=== PATIENT | female | born 1950 | race Two or more races ===

== ENCOUNTER 2018-03-19 10:06 | Inpatient (IN) | payer MEDICARE, OTHER ==
[2018-03-19] VITALS (10 sets, daily range): BP systolic 98–116; BP diastolic 58–73
[~2018-03-19] VITALS: Ht 162.6 cm; Wt 71.2 kg
--- NOTE | 2018-03-19 10:30 | NUR ---
MS RN ADMITTING NOTES ADMITTED PT FROM HOME-ACCOMPANIED BY HER FAMILY AT BEDSIDE.PT ALERT AND ORIENTED X4.VERBALLY RESPONSIVE IN HUNGARIAN AND RUSSIAN.DENIES ANY PAIN OR DISTRESS.NO SOB ON ROOM AIR.PT IS ON NPO FOR ANTERIOR L5-S1 DISCECTOMY AND INVERTEBRAL FUSION WITH POLYETHER,ETHER KETONE/TITANIUM SPACER,ALLOGRAFT BONE GRAFT AND SYNTHETIC BONE GRAFT MORNING SHOW PRODUCER SX.ALL CONSENTS AND CHECKLIST DONE.ALL BELONGING WILL BE BROUGHT BY FAMILY HOME.IV H/L INSERTED TO RT WRIST GAUGE 18.PT TOLERATED WELL.MRSA SCREENING OF LT NARES DONE AND SENT TO LAB.CALL LIGHT PLACED WITHIN REACH.
[2018-03-19] MEDS ORDERED: ANESTHESIA TRAY IN PYXIS 1 EA TRAY MC ONE (10:35)
[2018-03-19] MEDS ORDERED: HEPARIN SODIUM, PORCINE 5000 UNITS/1 ML VIAL ONE (10:42)
[2018-03-19] MEDS ORDERED: PROPOFOL 100 ML ONE (11:21)
[2018-03-19] MEDS ORDERED: KETAMINE HCL (500MG/10ML) 50 MG/ML VIAL ONE (11:21)
[2018-03-19] MEDS ORDERED: ROCURONIUM BROMIDE 50 MG/5 ML ONE ×2 (11:22→13:06)
[2018-03-19] MEDS ORDERED: DESFLURANE 240 ML BOTTLE IH ONE (11:22)
[2018-03-19] MEDS ORDERED: HYDROMORPHONE INJ 2 MG/ML DISP.SYRIN ONE (11:22)
[2018-03-19] MEDS ORDERED: MIDAZOLAM HCL 2 MG/2ML VIAL ONE (11:22)
--- NOTE | 2018-03-19 11:50 | NUR ---
PT WAS BROUGHT TO [facility] FOR SX WITH STABLE V/S.ALL CONSENTS AND CHECKLIST SIGNED AND DONE.DENIES ANY PAIN OR DISTRESS ON ROOM AIR.
[2018-03-19] MEDS ORDERED: GENTAMICIN 80 MG/2 ML VIAL ONE (12:15)
[2018-03-19] MEDS ORDERED: HEMOSTATIC MATRIX 10 ML 1 EACH PAD MC ONE (13:33)
[2018-03-19] MEDS ORDERED: ALBUTEROL FS 2.5 MG/3 ML VIAL.NEB ONE (15:52)
--- NOTE | 2018-03-19 16:30 | NUR ---
PT CAME BACK FROM [facility] S/P ANTERIOR SPINAL FUSION THRU ABDOMEN WITH STABLE V/S.PT REMAINS ALERT AND VERBALLY RESPONSIVE.WITH CARTER CATHETER DRAINING CLEAR YELLOW URINE.FAMILY AT BEDSIDE.CALLED DR MCKEON TO CLARIFY ABOUT PT'S VERBALIZING OF ANOTHER SX TOMORROW.NO PAIN MEDS NOR IVF ORDERED.PAGED DR MCKEON AWAITING TO RETURN CALL.
--- NOTE | 2018-03-19 17:00 | NUR ---
CALLED DR MCKEON TO CLARIFY POST OP ORDERS AND LEFT MESSAGE IN HIS VOICEMAIL.
[2018-03-19] MEDS ORDERED: ALPR0.5T8 PO (17:01)
[2018-03-19] MEDS ORDERED: EZET10TA14 PO (17:01)
[2018-03-19] MEDS ORDERED: HYDR-552 PO (17:01)
[2018-03-19] MEDS ORDERED: CARV3.12 PO (17:01)
--- NOTE | 2018-03-19 17:30 | NUR ---
CALLED VENKAT OLIVEIRA D.O. WHO HAS THE SAME PHONE NUMBER THAT OF DR MCKEON AND LEFT MESSAGE IN HIS VOICEMAIL.
--- NOTE | 2018-03-19 18:00 | NUR ---
NOTIFIED THE AUDIO PRODUCTION INSTRUCTOR,DANY AND ENERGY ADVISOR CLIENT CARE SPECIALIST,RADHA OF THE DIFFICULTY OF GETTING HOLD OF DR MCKEON.RADHA,THE ENERGY ADVISOR CLIENT CARE SPECIALIST STATED NOT TO CALL DR MCKEON TO CLARIFY ABOUT THE SX TOMORROW BECAUSE SHE CAN CHECK FOR TOMORROW'S SX SCHEDULE AND WILL LET US KNOW.EXPLAINED TO RADHA,RN CLIENT CARE SPECIALIST THAT WE NEED TO CLARIFY PT'S HOME MEDS AND IF THE PT WILL NEED HOSPITALIST TO INTERVENE WITH PT'S PAIN MEDS,HOME MEDS AND PRN MEDS BECAUSE DR MCKEON HAS NO POST OP ORDERS EXCEPT FOR PT'S DIET,CRISTOBAL TRANSFER POST OP AND BREATHING TX.TRIED CALLING DR MCKEON WITH FOR THE THIRD TIME.
--- NOTE | 2018-03-19 18:30 | NUR ---
APPROACHED PT'S FAMILY MEMBERS AND REQUESTED IF THEY HAVE DR ARMENTA'S PHONE NUMBER WHICH THEY HAVE,BUT IS DIFFERENT FROM THE PHONE NUMBER WE HAVE ONLINE(COMPUTER).CALLED DR MCKEON AND AWAITING TO RETURN CALL.
--- NOTE | 2018-03-19 19:00 | NUR ---
DR MCKEON RETURNED CALL AND STATED THAT THE PHONE NUMBER WE HAVE WAS WRONG.INFORMED DANYPREPARATION CENTER COORDINATOR NURSE ABOUT IT TO UPDATE THE PHONE NUMBER THEY HAVE ON FILE.DR ARMENTA GAVE ORDERS BUT WAS IN A LEE DUE TO AN IMPORTANT MEETING HE IS HAVING AT THAT TIME AND WILL CALL BACK LATER.ENDORSED TO NIGHT RNRIVAS TO FOLLOW UP PT'S HOME MEDS AND TOMORROW SX PROCEDURE.PT RESTING IN BED RESTING DENYING ANY PAIN OR DISTRESS SAYING SHE IS FINE.FAMILY MEMBERS AT BEDSIDE.CALL LIGHT PLACED WITHIN REACH.
[2018-03-19] MEDS ORDERED: HYDROCODONE/APAP 5/325MG 1 EACH TABLET PO PRN (19:30)
[2018-03-19] MEDS ORDERED: ONDANSETRON HCL/PF 4 MG/2 ML VIAL IV PRN (19:30)
[2018-03-19] MEDS ORDERED: HYDROMORPHONE 1 MG/1 ML DISP.SYRIN IV PRN (19:30)
--- NOTE | 2018-03-19 20:00 | NUR ---
CRISTOBAL/RN NOTES: RECEIVED PT. IN BED AWAKE. A/O X 4. W/ DRESSING TO LOWER ABDOMEN CLEAN AND INTACT. W/ LT. AND RT. WRIST G 18 PATENT AND INTACT W/ NO S/S OF INFECTION/INFILTRATION NOTED. W/ IVF GOING ON. DAUGHTER IS BY BEDSIDE. W/ SCD ON BILATERAL. CALL LIGHT W/ REACH. WILL CONTINUE TO MONITOR. PT. AND DAUGHTER MADE AWARE THAT PT. WILL BE NPO X MEDS W/ LITTLE SIPS OF WATER.
[2018-03-19] MEDS ORDERED: Potassium Chloride 20 MEQ in IV D5/0.45 NACL 1,000 ML IV SCH (20:30)
[2018-03-20] VITALS (16 sets, daily range): BP systolic 89–100; BP diastolic 50–68
--- NOTE | 2018-03-20 00:35 | NUR ---
CRISTOBAL/RN NOTES: PT. STATED THAT SHE FEELS HER BLADDER IS FULL AND HURTING HER " I DON'T THINK MY CARTER IS WORKING." BLADDER SCAN DONE W/ 436 ML. CHANGED F/C W/ 375 ML OUT CLEAR YELLOW URINE. " MY BETTER FEELS BETTER NOT HURTING ANY MORE." CALL LIGHT W/ REACH. WILL CONTINUE TO MONITOR.
[2018-03-20] MEDS ORDERED: ALBUTEROL FS 2.5 MG/0.5 ML VIAL.NEB NEB ONE (06:00)
[2018-03-20 06:35] LABS: HEMATOCRIT 42 % (33-45); HEMOGLOBIN 13.7 g/dL (11.5-14.8); LYMPHOCYTES # (AUTO) 1.2 /CMM (0.8-4.8); LYMPHOCYTES % (AUTO) 7.4 % (20.0-44.0); MEAN CORPUSCULAR HGB CONC 33 g/dl (31.0-36.0); MEAN CORPUSCULAR VOLUME 94 fL (82-100); MONOCYTES # (AUTO) 0.7 /CMM (0.1-1.30); MONOCYTES % (AUTO) 4.5 % (2.0-12.0); NEUTROPHILS # (AUTO) 13.9 /CMM (1.8-8.9); NEUTROPHILS % (AUTO) 88.1 % (43.0-81.0); PLATELET COUNT (AUTO) 229 /CMM (150-450); RDW COEFFICIENT OF VARIATION 13.3 (11.5-15.0); RED BLOOD CELL COUNT(AUTO) 4.41 MIL/uL (4.0-5.2); WHITE BLOOD COUNT (AUTO) 15.7 K/uL (4.3-11.0)
[2018-03-20 06:38] LABS: CALCIUM, SERUM 8.4 mg/dL (8.5-10.1); CREATININE 0.8 mg/dL (0.6-1.3); POTASSIUM 4.5 mmol/L (3.5-5.1)
[2018-03-20] MEDS ORDERED: ANESTHESIA TRAY IN PYXIS 1 EA TRAY MC ONE (07:04)
[2018-03-20] MEDS ORDERED: KETAMINE HCL (500MG/10ML) 50 MG/ML VIAL ONE (07:18)
[2018-03-20] MEDS ORDERED: HYDROMORPHONE INJ 2 MG/ML DISP.SYRIN ONE (07:18)
[2018-03-20] MEDS ORDERED: ROCURONIUM BROMIDE 50 MG/5 ML ONE (07:19)
[2018-03-20] MEDS ORDERED: MIDAZOLAM HCL 2 MG/2ML VIAL ONE (07:19)
--- NOTE | 2018-03-20 07:24 | NUR ---
CRISTOBAL/RN NOTES: PT. LEFT FOR SURGERY VIA BED AT 0720 W/ OR NURSE.
--- NOTE | 2018-03-20 07:40 | NUR ---
CRISTOBAL RN OPENING NOTE GOT REPORT FROM PM NURSE.PATIENT ALREADY PICKED UP FOR SURGERY.
[2018-03-20] MEDS ORDERED: ALBUTEROL FS 2.5 MG/3 ML VIAL.NEB ONE (07:42)
--- NOTE | 2018-03-20 07:47 | NUR ---
CRISTOBAL/RN NOTES: REPORT GIVEN TO NEXT SHIFT NURSE FOR CHERRIE.
[2018-03-20] MEDS ORDERED: GENTAMICIN 80 MG/2 ML VIAL ONE (07:48)
[2018-03-20] MEDS: ALBUTEROL FS 2.5 MG/3 ML VIAL.NEB NEB SCH ×4 (07:53→23:11)
[2018-03-20] MEDS ORDERED: HEMOSTATIC MATRIX 10 ML 1 EACH PAD MC ONE ×2 (08:55→10:59)
[2018-03-20] MEDS ORDERED: BACITRACIN 50000 UNITS/VIAL ONE ×2 (09:04→12:40)
[2018-03-20] MEDS ORDERED: HEPARIN SODIUM, PORCINE 5000 UNITS/1 ML VIAL ONE (09:06)
[2018-03-20] MEDS ORDERED: VANCOMYCIN 1 GM VIAL ONE (09:57)
[2018-03-20] MEDS ORDERED: FENTANYL PF 100MCG/2ML AMPUL ONE (13:58)
--- NOTE | 2018-03-20 15:15 | NUR ---
CRISTOBAL RN NOTES RECEIVED PATIENT FROM OR ,PATIENT IS ALERT,ON O2 2L VIA NASAL CANULA.NO SOB NO DISTRESS NOTED AT THIS TIME.DENIED CHEST PAIN.SURGICAL SITE IS INTACT.NO BLEEDING NOTED.PERIPHERAL PULSE PRESENT BILATERAL LOWER EXTREMITY.OV ON R WRIST IS INTACT AND PATENT WITH IVF ONGOING.FAMILY AT BEDSIDE.EXPLAINED PLAN OF CARE.CALL LIGHT IN REACH.BED IS LOW AND IN LOCKED POSITION.SRX3.WILL CONTINUE TO MONITOR.
[2018-03-20] MEDS ORDERED: NALOXONE HCL 0.4 MG/ML AMPUL IV PRN (15:30)
[2018-03-20] MEDS ORDERED: ACETAMINOPHEN 325 MG TABLET PO PRN (15:30)
[2018-03-20] MEDS ORDERED: HYDROMORPHONE MDV 30 MG in IV NS 0.9% 15 ML, PCA TOTAL VOLUME 1 BAG IV PRN ×3 (15:30)
[2018-03-20] MEDS ORDERED: MAGNESIUM HYDROXIDE 30 ML UDC PO PRN ×2 (15:30)
[2018-03-20] MEDS ORDERED: ONDANSETRON HCL/PF 4 MG/2 ML VIAL IM/IV PRN (16:00)
[2018-03-20] MEDS ORDERED: KEY,NONCONTROL,TO KEEP IN PYXI 1 EA MC ONE ×3 (16:12→19:38)
[2018-03-20] MEDS: DOCUSATE SODIUM 100 MG CAPSULE PO SCH (17:00)
--- NOTE | 2018-03-20 17:52 | NUR ---
CRISTOBAL RN NOTES CALL MADE TO LEFT MESSAGE REGARDING PATIENT C/O PAIN INSIDE THE THROAT.SPOKE TO ALEXANDRO .WAITING TO CALL BACK.
[2018-03-20] MEDS ORDERED: POLYVINYL ALCOHOL 15 ML BOTTLE EACHEYE PRN (19:00)
--- NOTE | 2018-03-20 19:30 | NUR ---
RN NOTE RECEIVED PT IN NO ACUTE DISTRESS IN BED. PT IS A/O X 2 AND ABLE TO MAKE NEEDS KNOWN. PT HAS FAMILY AT BEDSIDE FOR SUPPORT. PT IS ON O2 VIA NC @ 2LPM AND TOLERATING WELL WITH O2 SAT @ 96%. PT IS ON TELE WITH SINUS RHYTHM ON THE MONITOR. PT NOT C/O OF SOB OR DIFFICULTY BREATHING AT THIS TIME. PT HAS CLEAR BREATH SOUNDS IN ALL KIDD. PT ATTEMPTED INCENTIVE SPIROMETER WITH GOOD TECHNIQUE AND GAUGE HITTING 1000ML. PT HAS HYPOACTIVE BOWEL SOUNDS IN ALL FOUR QUADRANTS. ABDOMEN HAS SURGICAL DRESSING FROM S/P SURGICAL PROCEDURE THAT IS CLEAN DRY AND INTACT. PT HAS SURGICAL DRESSING ON BACK THAT IS CLEAN DRY AND INTACT. PT C/O SLIGHT PAIN WITH MOVEMENT, BUT WHEN PT DOESN'T MOVE PAIN IS CONTROLLED. PT HAS POSITIVE BILATERAL UPPER AND LOWER EXTREMITY PULSES THAT ARE STRONG AND REGULAR. PT HAS RIGHT HAND 20G IV THAT IS CLEAN DRY INTACT AND PATENT WITH DIRECTOR OF MARKETING OPERATIONS PUMP ON DEMAND 0.5MG DILAUDID WITH LOCK OUT OF 6 MIN. PT HAS LEFT HAND 18G THAT IS CLEAN DRY INTACT AND PATENT WITH D51/2NS + 20MEQ KCL @ 75ML/HR AND NS @ TKO. BED IN LOW LOCK POSITION WITH RIALS UP X 2. CALL LIGHT WITHIN REACH AND ALL SAFETY MEASURES ENSURED AND CARRIED OUT. WILL CONTINUE TO MONITOR PT AND PERFORM FREQUENT ALEXANDRA LOWER EXTREMITY NEUROVASCULAR CHECKS.
--- NOTE | 2018-03-20 19:54 | NUR ---
CRISTOBAL RN CLOSING NOTE PATIENT IS AXOX2 IN STABLE CONDITION.ON PHOTOGRAPHER STILL PUMP.GOT NEW ORDER FOR ARTIFICIAL EYE DROPS FOR EYE DRYNESS.PATIENT AWARE.ENDORSED TO PM NURSE FOR CHERRIE.
[2018-03-20] MEDS: MENTHOL/CETYLPYRD (CEPACOL) 1 LOZ LOZENGE PO PRN (20:44)
[2018-03-20] MEDS: ANCEF 1 GM/50 ML D5W IV SCH ×2 (20:44)
--- NOTE | 2018-03-20 20:45 | NUR ---
RN NOTE VITALS ARE BP 87/53 HR 68 02 SAT 97 TEMP 98.0
--- NOTE | 2018-03-20 21:45 | NUR ---
RN NOTE VITALS ARE BP 91/56 HR 69 O2 SAT 96 TEMP 98.0
--- NOTE | 2018-03-20 22:00 | NUR ---
RN NOTE POSITIVE BILATERAL UPPER AND LOWER EXTREMITY PULSES AND ABLE TO MOVE ALL EXTREMITIES.
[2018-03-21] VITALS: BP 91/57
--- NOTE | 2018-03-21 | NUR ---
RN NOTE POSITIVE BILATERAL UPPER AND LOWER EXTREMITY PULSES AND ABLE TO MOVE ALL EXTREMITIES.
--- NOTE | 2018-03-21 02:00 | NUR ---
RN NOTE POSITIVE BILATERAL UPPER AND LOWER EXTREMITY PULSES AND ABLE TO MOVE ALL EXTREMITIES.
[2018-03-21] MEDS: ALBUTEROL FS 2.5 MG/3 ML VIAL.NEB NEB SCH ×6 (03:28→23:24)
[2018-03-21 04:00] VITALS: BP 88/52
--- NOTE | 2018-03-21 04:00 | NUR ---
RN NOTE POSITIVE BILATERAL UPPER AND LOWER EXTREMITY PULSES AND ABLE TO MOVE ALL EXTREMITIES.
[2018-03-21] MEDS: ANCEF 1 GM/50 ML D5W IV SCH ×6 (04:57→20:22)
--- NOTE | 2018-03-21 06:00 | NUR ---
RN NOTE POSITIVE BILATERAL UPPER AND LOWER EXTREMITY PULSES AND ABLE TO MOVE ALL EXTREMITIES.
--- NOTE | 2018-03-21 06:30 | NUR ---
RN NOTE CARTER CATHETER D/C PER MD ORDERS. PT TOLERATED WELL. WILL CONTINUE TO MONITOR IF PT VOIDS IN 8 HOURS. INFORMED PT TO CALL FOR ASSISTANCE TO USE BEDPAN. WILL ENDORSE TO AM RN.
[2018-03-21 06:31] LABS: HEMATOCRIT 31 % (33-45); HEMOGLOBIN 10.1 g/dL (11.5-14.8); LYMPHOCYTES % (AUTO) 5.4 % (20.0-44.0); MEAN CORPUSCULAR HGB CONC 33 g/dl (31.0-36.0); MEAN CORPUSCULAR VOLUME 95 fL (82-100); MONOCYTES # (AUTO) 1.6 /CMM (0.1-1.30); MONOCYTES % (AUTO) 8.5 % (2.0-12.0); NEUTROPHILS # (AUTO) 16.1 /CMM (1.8-8.9); NEUTROPHILS % (AUTO) 86.1 % (43.0-81.0); PLATELET COUNT (AUTO) 189 /CMM (150-450); RDW COEFFICIENT OF VARIATION 13.5 (11.5-15.0); RED BLOOD CELL COUNT(AUTO) 3.27 MIL/uL (4.0-5.2); WHITE BLOOD COUNT (AUTO) 18.7 K/uL (4.3-11.0)
[2018-03-21 06:33] LABS: CALCIUM, SERUM 7.6 mg/dL (8.5-10.1); CREATININE 0.7 mg/dL (0.6-1.3); POTASSIUM 4.4 mmol/L (3.5-5.1)
--- NOTE | 2018-03-21 07:05 | NUR ---
CRISTOBAL RN NOTES RECEIVED PT ON BED.ALERT AND ORIENTED X4 WITH MALTESE AND YAKUT SPEAKING.ON O2 2 L VIA NC CONTINUOUSLY,TOLERATING WELL.NO SOB AND ACUTE DISTRESS NOTED.ON TELEMONITORING HR IS 60'S SINUS RHYTHM WITH BBB.SKIN ASSESSMENT DONE AND DRESSING ON ABDOMEN AND BACK ARE CLEAN,INTACT AND DRY.PERIPHERAL IV LINE ON LEFT WRIST,18G WITH IV FLUID 20MEQ KCL @100ML/HR AND RIGHT WRIST,18G WITH SUPERVISOR PYROTECHNIC LOADING DILAUDID .NEURO CHECK IS DONE AND POSITIVE B/L DP AND PT NOTED .SITE IS CLEAN,DRY AND INTACT.BED IS IN LOW POSITION AND LOCKED.CALL LIGHT IS WITH IN REACH.WILL CONTINUE TO MONITOR THE PT CLOSELY.
--- NOTE | 2018-03-21 07:35 | NUR ---
RN NOTE PT REMAINS IN NO ACUTE DISTRESS IN BED. PT DID NOT HAVE ANY SIGNIFICANT CHANGE IN CONDITION DURING SHIFT. ALL NEEDS MET, ALL ORDERS CARRIED OUT. PAIN MANAGEMENT WITH SURFACER OPERATOR PUMP AND PT TOLERATED WELL. WILL ENDORSE CARE TO AM RN FOR CONTINUITY OF CARE.
[2018-03-21 08:00] VITALS: BP 97/55
[2018-03-21] MEDS: DOCUSATE SODIUM 100 MG CAPSULE PO SCH ×2 (08:30→16:28)
[2018-03-21 12:00] VITALS: BP 94/59
[2018-03-21] MEDS ORDERED: HYDROMORPHONE 1 MG/1 ML DISP.SYRIN IV PRN (14:30)
[2018-03-21] MEDS ORDERED: KEY,NONCONTROL,TO KEEP IN PYXI 1 EA MC ONE (14:38)
[2018-03-21] MEDS: HYDROCODONE/APAP 5/325MG 1 EACH TABLET PO PRN ×2 (14:50→22:12)
--- NOTE | 2018-03-21 15:00 | NUR ---
RN NOTES PT STATED FEELS BETTER , PAIN LEVEL IS ZERO AT THIS TIME . DR. MCKEON NOTIFED, JEWELRY RACKER DISCONTINUED PER MD ORDER. PT UNABLE TO VOID , IN & OUT CATH DONE PER MD ORDER, 700 CC URINE OBTAINED OBTAINED.CONTINUE TO MONITOR .
[2018-03-21] MEDS: MENTHOL/CETYLPYRD (CEPACOL) 1 LOZ LOZENGE PO PRN (15:34)
[2018-03-21 16:00] VITALS: BP 78/52
--- NOTE | 2018-03-21 18:54 | NUR ---
MAINTENANCE DATA ANALYST CLOSING NOTES PT IS ON BED.ALERT/ORIENTED X4.CAN TOLERATE 2L O2 VIA NC CONTINUOUSLY WITH 02 SAT 95%.NO SOB AND ACUTE DISTRESS NOTED.SHE TOLERATED WELL WITH REGULAR FOOD.PERIPHERAL IV LINE IS ON RIGHT AND LEFT WRIST,G 18,SITE IS CLEAN,DRY AND INTACT.BED IS IN LOW POSITION AND LOCKED.WILL ENDORSE TO NEXT SHIFT FOR CONTINUITY OF CARE.
--- NOTE | 2018-03-21 19:36 | NUR ---
CATALOGUE CLERK NOTES RECEIVED PT ON BED. WITH FAMILY ON BEDSIDE. ON ROOM AIR SATURATING WELL. ON TELE MONITOR SR WITH BBB HR 97. IV ACCESS ON LEFT WRIST 18G D5 1/2 NS 20MEQ RUNNING @ 50CC/HR RUNNING WELL PATENT AND INTACT. HEAD OF BED ELEVATED. SIDE RAIILS UP. CALL LIGHT WITHIN REACH. BED ALARM ON. BED IN LOCKED AND LOW POSITION. WILL CONTINUE TO MONITOR PT CLOSELY.
[2018-03-21 20:00] VITALS: BP 87/52
[2018-03-21] MEDS ORDERED: IV NS 0.9% 500 ML IV ONE (21:30)
--- NOTE | 2018-03-21 21:32 | NUR ---
VACUUM FORM OPERATOR NOTES PER DOCTOR CHARLI, INSERT CARTER CATH AND REMOVED AT 6AM. BOLUS NS 500CC FOR HYPOTENSION WILL RECHECKED BLOOD PRESSURE AFTER 30MINS. . WILL CONTINUE TO MONITOR PT.
--- NOTE | 2018-03-21 22:00 | NUR ---
TD RN NOTES POSITIVE BILATERAL UPPER AND LOWER EXTREMITY PULSES AND ABLE TO MOVE ALL EXTREMITIES
--- NOTE | 2018-03-21 22:56 | NUR ---
PANTOGRAPH ENGRAVER NOTES INSERTED CARTER CATHETER 600CC YELLOW URINE DRAINED. BLOOD PRESSURE CHECKED 91/57MMHG AFTER BOLUS NS 500CC GIVEN. CALLED DR. AUGUSTIN. PER DR AUGUSTIN, INCREASE IV FLUID TO 80CCHR AND DC @ 6AM IN THE MORNING, PER DR MIKE SHAFFER TO GIVE PAIN MEDS EVEN THO THE BP IS IN HIGH 80'S AND LOW 90'S. WILL CONTINUE TO MONITOR PT CLOSELY.
[2018-03-22] VITALS (7 sets, daily range): BP systolic 85–111; BP diastolic 30–57
--- NOTE | 2018-03-22 02:04 | NUR ---
HUMAN RESOURCES OPERATIONS MANAGER NOTES POSITIVE BILATERAL UPPER AND LOWER EXTREMITY PULSES AND ABLE TO MOVE ALL EXTREMITIES.
[2018-03-22] MEDS: ANCEF 1 GM/50 ML D5W IV SCH ×4 (03:05→11:39)
--- NOTE | 2018-03-22 03:09 | NUR ---
MACHINE EDGE BANDER NOTES PT REFUSED PEDAL PULSES CHECKED AND NEUROLOGICAL CHECKED. PT STATES SHE WANTS TO REST. EXPLAINED BENEFITS. PT STILL REFUSED. WILL CONTINUE TO MONITOR.
[2018-03-22] MEDS: ALBUTEROL FS 2.5 MG/3 ML VIAL.NEB NEB SCH ×6 (03:11→23:30)
--- NOTE | 2018-03-22 05:51 | NUR ---
PET SITTING NOTES PT REFUSED TO HAVE HER CARTER CATH REMOVED. EXPLAINED RISK AND BENEFITS. PER PT REMOVED IT IN THE MORNING. WILL CONTINUE TO MONITOR PT CLOSELY.
[2018-03-22] MEDS: HYDROCODONE/APAP 5/325MG 1 EACH TABLET PO PRN ×3 (05:55→23:04)
--- NOTE | 2018-03-22 06:28 | NUR ---
CARD TABLE ATTENDANT NOTES RN ABLE TO REMOVE CARTER CATH. WILL MONITOR VOIDING PATTERN OF THE PT CLOSELY. WILL CONTINUE TO MONITOR
[2018-03-22 06:43] LABS: BASOPHILS % (AUTO) 0.2 % (0.0-2.0); EOSINOPHILS % (AUTO) 0.1 % (0.0-6.0); HEMATOCRIT 26 % (33-45); HEMOGLOBIN 8.7 g/dL (11.5-14.8); LYMPHOCYTES # (AUTO) 2.4 /CMM (0.8-4.8); LYMPHOCYTES % (AUTO) 19.9 % (20.0-44.0); MEAN CORPUSCULAR HGB CONC 33 g/dl (31.0-36.0); MEAN CORPUSCULAR VOLUME 94 fL (82-100); MONOCYTES # (AUTO) 1.2 /CMM (0.1-1.30); MONOCYTES % (AUTO) 9.8 % (2.0-12.0); NEUTROPHILS # (AUTO) 8.3 /CMM (1.8-8.9); PLATELET COUNT (AUTO) 147 /CMM (150-450); RDW COEFFICIENT OF VARIATION 13.7 (11.5-15.0); RED BLOOD CELL COUNT(AUTO) 2.78 MIL/uL (4.0-5.2); WHITE BLOOD COUNT (AUTO) 11.9 K/uL (4.3-11.0)
[2018-03-22 06:47] LABS: CALCIUM, SERUM 7.6 mg/dL (8.5-10.1); CREATININE 0.6 mg/dL (0.6-1.3); POTASSIUM 4.2 mmol/L (3.5-5.1)
--- NOTE | 2018-03-22 06:54 | NUR ---
RELIEF MAN NOTES NO ACUTE CHANGES NOTED DURING THE SHIFT. PROVIDED COMFORT AND SAFETY. DUE MEDS GIVEN. PAIN LEVEL MONITORED. SIDE RAILS UP. HEAD OF BED ELEVATED. WILL CONTINUE TO MONITOR PT CLOSELY.
--- NOTE | 2018-03-22 07:50 | NUR ---
MS/RN Patient received Patient received from scene shifter. A/O X4, appears in no distress. Shin catheter removed at 6a, has not yet voided, per patient does not feel urge to void at this time. Last pain medication (norco) administered at 6a. Safety measures in place, call light within reach, will continue to monitor and ensure safety.
--- NOTE | 2018-03-22 09:00 | NUR ---
MS/RN Labs Morning labs reviewed: -WBC 11.9 -H&H 8.7
[2018-03-22] MEDS: DOCUSATE SODIUM 100 MG CAPSULE PO SCH ×2 (09:04→16:57)
--- NOTE | 2018-03-22 09:13 | NUR ---
MS/RN Dr Villalta Call received from Dr Villalta - plan for discharge to [facility] tomorrow. CBC, BMP ordered for tomorrow.
--- NOTE | 2018-03-22 11:05 | NUR ---
MS/RN S/B Physical therapy Seen by PT - out of bed to bedside commode, able to walk short distance.
--- NOTE | 2018-03-22 14:00 | NUR ---
MS/waiter/waitress counter update Daughter at bedside, updated as to plan of care. All questions addressed.
--- NOTE | 2018-03-22 16:00 | NUR ---
MS/RN Hypotension Blood pressure continues to be on low side at 85/30, and to complain of lower abdominal pain. Dr Villalta called. Order given for stat H&H, and 250ml normal saline bolus. Patient updated as to plan and in agreement.
[2018-03-22] MEDS ORDERED: IV NS 0.9% 250 ML BAG IV ONE (16:30)
[2018-03-22 17:05] LABS: HEMOGLOBIN 9.2 g/dL (11.5-14.8)
[2018-03-22] MEDS ORDERED: NEOMY SULF/BACITRAC ZN/POLY 15 GM TUBE TP PRN (18:30)
--- NOTE | 2018-03-22 18:40 | NUR ---
MS/RN End note Dr Villalta called to inform of lab results -H&H 9.08/15 Blood pressure following bolus 87/46. Order given to continue to observe blood pressure and to monitor pain level. Neosporin ordered per patient request for rash under both breasts. Assisted to bedside commode throughout the shift with minimal assist to reposition. All questions and concerns addressed. Safety measures in place, will endorse to shift manager.
--- NOTE | 2018-03-22 20:00 | NUR ---
RN INITIAL NOTES RECEIVED PT IN BED, A&OX4. FAMILY AT BED SIDE. PT REPOSITION AND MADE COMFORTABLE IN BED, NO SIGNS OF DISTRESS. IV IN L WRIST INTACT AND PATENT. DRESSING INTACT. ALL SAFETY PRECAUTION TAKE. CALL LIGHT WITH IN REACH. WILL CONT TO MONITOR.
[2018-03-23] MEDS: ALBUTEROL FS 2.5 MG/3 ML VIAL.NEB NEB SCH ×3 (03:30→11:29)
[2018-03-23 04:00] VITALS: BP 101/54
[2018-03-23] MEDS: HYDROCODONE/APAP 5/325MG 1 EACH TABLET PO PRN (04:46)
[2018-03-23 05:35] VITALS: BP 101/54
[2018-03-23 06:39] LABS: CREATININE 0.7 mg/dL (0.6-1.3); POTASSIUM 4.2 mmol/L (3.5-5.1)
[2018-03-23 06:50] LABS: BASOPHILS % (AUTO) 0.4 % (0.0-2.0); EOSINOPHILS % (AUTO) 3.2 % (0.0-6.0); HEMATOCRIT 27 % (33-45); LYMPHOCYTES # (AUTO) 2.3 /CMM (0.8-4.8); LYMPHOCYTES % (AUTO) 23.1 % (20.0-44.0); MEAN CORPUSCULAR HGB CONC 33 g/dl (31.0-36.0); MEAN CORPUSCULAR VOLUME 94 fL (82-100); MONOCYTES # (AUTO) 0.9 /CMM (0.1-1.30); MONOCYTES % (AUTO) 8.9 % (2.0-12.0); NEUTROPHILS # (AUTO) 6.3 /CMM (1.8-8.9); NEUTROPHILS % (AUTO) 64.4 % (43.0-81.0); PLATELET COUNT (AUTO) 185 /CMM (150-450); RDW COEFFICIENT OF VARIATION 13.4 (11.5-15.0); RED BLOOD CELL COUNT(AUTO) 2.88 MIL/uL (4.0-5.2); WHITE BLOOD COUNT (AUTO) 9.9 K/uL (4.3-11.0)
--- NOTE | 2018-03-23 07:30 | NUR ---
RN INITIAL NOTES RECEIVED PT IN BED, A&OX4. PT IN BED.AWAKE.NO C/O PAIN.SHE SAID SHE WILL CALL ME IF SHE NEED PAIN MEDICATION OR ANY HELP.NO SOB NO DISTRESS NOTED AT THIS TIME. DRESSING INTACT. EXPLAINED PLAN OF CARE TO THE PATIENT.ALL SAFETY PRECAUTION IN PLACE. CALL LIGHT WITH IN REACH. INSTRUCTED TO CALL FOR HELP.WILL CONT TO MONITOR.
[2018-03-23 08:00] VITALS: BP_SYST 86; BP_SYST 90; BP_DIAS 52; BP_DIAS 84
[2018-03-23] MEDS: DOCUSATE SODIUM 100 MG CAPSULE PO SCH (09:15)
--- NOTE | 2018-03-23 12:00 | NUR ---
MS RN NOTES GOT CALL FROM GOT ORDER TO D/C TO ARU.CONTINUE PRIOR ORDERS,COVER DRESSING FOR SHOWER,F/U APPOINTMENT AFTER D/C FROM ARU.DO NOT OPEN DRESSING, WILL F/U PATIENT AT [facility] AND DO DRESSING CHANGE.
--- NOTE | 2018-03-23 12:30 | NUR ---
MS RN NOTES SEEN BY DR ARMENTA MADE CHASE ABOUT PATIENT CONDITION AND UPDATED LABS.OK TO D/C.MADE AWARE BLOOD PRESSURE 94/62.STABLE .DRESSING CHANGE DONE .EXPLAINED DISCHARGE PLAN TO THE PATIENT .
--- NOTE | 2018-03-23 12:45 | NUR ---
RN NOTES CALL MADE TO RESIDENTIAL PEST CONTROL TECHNICIAN ,GOT SEISMIC OBSERVER TIME TO D/C TO [facility].DAUGHTER CRIS MADE AWARE.SHE SAID SHE WILL BE HERE IN AN HOUR.
--- NOTE | 2018-03-23 14:10 | NUR ---
MS INTELLIGENCE CLERK NOTE PATIENT DISCHARGED TO [facility] IN STABLE CONDITION.AXOX4.NO SOB NO DISTRESS NOTED AT THIS TIME.DAUGHTER CRIS TOOK ALL BELONGINGS TO CAR.SHE DONT WANT TO LOGIN ,SHE SIGNED THE BELONGING LIST.GLASSES WITH PATIENT.DISCHARGE INSTRUCTIONS GIVEN TO THE PATIENT.VERBALIZE UNDERSTANDING.SIGNED PAPERWORK.IV LINE REMOVED .MINIMAL BLEEDING NOTED.PRESSURE DRESSING APPLIED.REPORT GIVEN TO MARLO NURSE IN [facility].SPECIAL INSTRUCTIONS GIVEN REGARDING SURGICAL SITE DRESSING CHANGE AND ALL INSTRUCTIONS FROM .DISCHARGE FOLDER GIVEN TO EMT.
== END 2018-03-23 13:57 | DRG 454 ==
LOC: DS 10:06 → MEDSG1 10:08 → TELE-TD 17:50 → TELE1 03-21 17:54 → MEDSG1 03-22 16:39
PROVIDERS: ADMIT Specialist; ATTEND Specialist
PROC: 0SG30A0 Fusion of Lumbosacral Joint with Interbody Fusion Device, Anterior Approach, Anterior Column, Open Approach (ICD-10-PCS; principal; 2018-03-19 11:30)
PROC: 0SB40ZZ Excision of Lumbosacral Disc, Open Approach (ICD-10-PCS; principal; 2018-03-19 11:30)
PROC: 0SP004Z Removal of Internal Fixation Device from Lumbar Vertebral Joint, Open Approach (ICD-10-PCS; 2018-03-20)
PROC: 0SG3071 Fusion of Lumbosacral Joint with Autologous Tissue Substitute, Posterior Approach, Posterior Column, Open Approach (ICD-10-PCS; 2018-03-20)
DX: M51.17 Intervertebral disc disorders with radiculopathy, lumbosacral region (principal); R71.0 Precipitous drop in hematocrit; M99.53 Intervertebral disc stenosis of neural canal of lumbar region; M99.54 Intervertebral disc stenosis of neural canal of sacral region; Z87.891 Personal history of nicotine dependence; Z45.89 Encounter for adjustment and management of other implanted devices; M81.0 Age-related osteoporosis without current pathological fracture; M85.852 Other specified disorders of bone density and structure, left thigh; Z68.27 Body mass index [BMI] 27.0-27.9, adult; G89.29 Other chronic pain
CPT/HCPCS: 36415; 72100-TC; 80048-TC; 85025-TC; 85027-TC; 86850-TC; 86921-TC; 87081-TC; 88300-TC; 88304-TC; 88311-TC; 94760-TC; 94799-TC; 97116-TC; 97530-TC; A4216; A4606; A6209; A6402; J0690; J1100; J1170; J1580; J1644; J2250; J2405; J2704; J3010; J3370; J3480; J3490; J7040; J7042; J7050; J7060; Z7610